=== PATIENT | female | born 1950 | race Caucasian/White ===

== ENCOUNTER 2017-02-14 07:30 | Inpatient (IN) ==
[~2017-02-14 07:30] MED LIST: ACETAMINOPHEN 500 MG TABLET PO ONE; CEFAZOLIN 1 G INJECTION IVP ONE; FAMOTIDINE PB 20 MG/50 ML BAG IV ONE; LIDOCAINE 1% (10mg/ml) 2mL INJ PF SDV ID ONE; LR 1,000 ML IV SCH; METOCLOPRAMIDE 10mg/2ml INJECTION IVP ONE; NOZIN NASAL SWAB NAS ONE; ONDANSETRON 4 MG/2 ML INJECTION IVP ONE
[2017-02-14] MEDS ORDERED: EPINEPHrine 0.25 MG, BUPIVACAINE 0.25% PF 30 ML, MORPHINE SULFATE 15 MG, KETOROLAC INJ ... OPSITE ONE (08:00)
[2017-02-14 09:18] VITALS: BMI 39.2
[2017-02-14] MEDS ORDERED: INSULIN REGULAR, HUMAN 100 UNIT/ML INJECTION SQ ONE (11:08)
[2017-02-14] MEDS ORDERED: TRANEXAMIC ACID 1gm/NS 100ml IRR MIX IR ONE (11:28)
[2017-02-14] MEDS ORDERED: SALINE FLUSH 10ml SYRINGE IVF PRN (11:28)
--- NOTE | 2017-02-14 12:46 | Anesthesia Preoperative Report ---
Anesthesia Preoperative Record - Date and Time Date: 02/14/17 Preoperative Diagnosis: M17.11 Rt TKA osteoarthritis right knee Proposed Procedure: total right knee NPO Since Date: 02/13/17 NPO Since Time: 23:00 Allergies/Adverse Reactions: Allergies Allergy/AdvReac Type Severity Reaction Status Date / Time No Known Allergies Allergy Unknown Verified 02/14/17 09:45 - Vital Signs Vital Signs: Temperature 98.2 F 02/14/17 09:17 Pulse Rate 78 02/14/17 10:07 Respiratory Rate 17 02/14/17 09:17 Blood Pressure 119/67 02/14/17 09:17 Pulse Oximetry 96 02/14/17 09:17 Oxygen Delivery Method Room Air Height and Weight: Height 1.73 m Weight 117 kg Body Mass Index 39.2 - Medications Inpatient Medications: Current Medications Lactated Ringer's (Lactated Ringers) 1,000 mls @ 50 mls/hr IV .Q20H AVIS Last Admin: 02/14/17 10:22 Dose: 50 mls/hr Sodium Chloride (Iv Flush) 10 - 80 ml IVF PRN PRN PRN Reason: Flushing Home Medications: Home Medications Medication Instructions Recorded Confirmed Type Prevacid (Lansoprazole) 15 mg 30 mg PO DAILY cap 01/05/17 02/14/17 History capsule,delayed release aspirin 81 mg tablet,delayed 81 mg PO HS tab 01/05/17 02/13/17 History release bupropion HCl SR 150 mg tablet,12 150 mg PO DAILY 30 Days #56 01/05/17 02/14/17 History hr sustained-release cisapride 10 mg tablet 10 mg PO AC30HS 01/05/17 02/14/17 History exemestane 25 mg tablet 25 mg PO WS tab 01/05/17 02/14/17 History insulin aspart 100 unit/mL See Protocol CONTINUOUS 01/05/17 02/14/17 History subcutaneous solution SUBCUTANEOUS INFUSION DAILY 90 Days #90 magnesium 250 mg tablet 500 mg PO DAILY tab 01/05/17 02/14/17 History multivitamin with minerals tablet 1 tab-cap PO DAILY tab 01/05/17 02/14/17 History olmesartan 20 1 tab PO DAILY 01/05/17 02/14/17 History mg-hydrochlorothiazide 12.5 mg tablet oxybutynin chloride ER 5 mg 5 mg PO DAILY 30 Days #30 01/05/17 02/14/17 History tablet,extended release 24 hr rosuvastatin 10 mg tablet 10 mg PO HS tab 01/05/17 02/14/17 History vitamin B complex tablet 1 tab-cap PO 1200 tab 01/05/17 02/14/17 History Calcium Phosphate Trib/Vit D3 1 each PO 1200 01/26/17 02/14/17 History [Citracal + D3 Gummies] Krill/Todd-3/Dha/Epa/Lipids 1 each PO DAILY 01/26/17 02/13/17 History [Krill Oil 300 mg Softgel] - Medical History Cardiovascular: Reports: Hypertension Neuro/Musculoskeletal: Reports: Depression - Surgical History HEENT Surgeries: Reports: Tonsillectomy Cardiac Surgeries/Treatments: Reports: Cardiac Catheterization GI Surgery/Treatments: Reports: Colonoscopy (polypectomy), EGD Musculoskeletal Surgery/Tx: Reports: Orthopedic Surgery (ORIF left ankle) Reproductive Surgery/Treatment: Reports: Breast Augmentation/Reduction ( bilateral breast reconstruction; debridement left latissimus flap), Section (x2), Mastectomy (bilateral), Other (Exchange boy breast tissue expanders;boy nipple reconst) Comment Only: Lumpectomy (Rt&Lt breast biopsy; rt partial mastectomy) Anesthesia Reactions: None Hx Family Anesthesia Reaction: No - Social History Smoking Status: Former smoker - Pertinent Findings Laboratory: CBC and BMP 02/14/17 09:28 02/14/17 09:28 BMP 02/14/17 09:28 Sodium 142 Potassium 4.8 Chloride 103 Carbon Dioxide 27 BUN 38.0 H Creatinine 1.5 H Glucose 194 H Calcium 10.0 EKG Rhythm: Normal Sinus Rhythm - Physical Exam Respiratory Exam: Present: lungs clear, bilateral breath sounds equal Cardiovascular Exam: Present: regular rate and rhythm, no murmur - Airway Assessment Mallampati Score: II TMD: 3 Fingerbreadths Neck Extension: good - Plan Regional/Trunk Block: Spinal - Discussion Discussion: Discussed risks/options/alternatives of anesthesia and questions answered. Patient consents. Nursing pain assessment noted. Attestation Statement: Prior to the delivery of any anesthetic medication, I examined the patient, developed the plan, obtained the patient's consent and discussed the risk and benefits of the procedure with the patient/guardian.
[2017-02-14] MEDS ORDERED: FentaNYL 100 MCG/2 ML INJECTION ONE (12:51)
[2017-02-14] MEDS ORDERED: MIDAZOLAM 2mg/2ml INJECTION ONE (12:51)
[2017-02-14] MEDS ORDERED: VANCOMYCIN 1,000 MG INJECTION ONE (12:51)
[2017-02-14] MEDS ORDERED: VANCOMYCIN 1,000 MG INJECTION IAR ONE (13:00)
[2017-02-14] MEDS ORDERED: PROPOFOL 500 MG/50 ML VIAL IV ONE (13:07)
[2017-02-14] MEDS ORDERED: LIDOCAINE 2% (100mg/5mL) PF 5ml vl ONE (13:07)
[2017-02-14] MEDS ORDERED: KETAMINE 500 MG/10 ML INJECTION ONE (13:07)
[2017-02-14] MEDS: NS 1,000 ML IV SCH ×2 (13:29→14:09)
[2017-02-14] MEDS ORDERED: EPHEDRINE 50mg/ml INJECTION ONE (13:43)
[2017-02-14] MEDS ORDERED: SALINE FLUSH 10ml SYRINGE ONE (13:43)
[2017-02-14] MEDS ORDERED: ROPIVACAINE 0.5% (5mg/ml) 30ml INJ ONE (14:08)
--- NOTE | 2017-02-14 14:27 | Operative Note ---
- Procedure Date of Admission: 02/14/17 Side: right Preoperative Diagnosis: knee primary DJD Postoperative Diagnosis: Same as preoperative diagnosis. Operation: total knee arthroplasty Surgeon: Roseann Birmingham MD Postal Transportation Clerk: Lavon Chaudhry Complications: None. Regional/Trunk Block: Spinal Peripheral Nerve Block: Saphenous-Right Estimated Blood Loss: See Anesthesia Record. Fluids: Please see Anesthesia Record. Description of Procedure: Mrs. Pulliam and the right knee were identified and marked in the preoperative holding area. She was brought back to the operating suite and placed supine on the operating table. Spinal anesthetic was administered. The operative lower extremity was prepped and draped in a sterile fashion. Timeout was performed. She had no flexion contracture and a correctable varus deformity. An anterior midline incision followed by medial parapatellar arthrotomy was performed. The tourniquet was not used until cementing. Hemostasis was obtained with electrocautery. The patella was resurfaced to a size 29. A distal femoral osteotomy was then performed in 5 of valgus using intramedullary guide. The femur was sized at a 3 and rotation set using the epicondylar axis. Distal femoral cuts were performed with a 4-in-1 cutting block. A proximal tibial cut was then made perpendicular to its long axis using an extramedullary guide. At this point remaining meniscus and osteophytes were removed and joint cocktail was injected throughout soft tissue. Trial components were placed with a 9 mm spacer. This allowed for full extension and flexion and the patella tracked well. The leg was then exsanguinated and the tourniquet inflated to 250 mmHg. The tibia was then stamped at a size 3 at the proper rotation. The bone was then prepared for cementing and Sasha Triathalon components were cemented into place and allowed to cure in extension. The tourniquet was then let down and hemostasis obtained with electrocautery. Betadine solution was used during the curing period for 3 minutes. 1 g of TXA was allowed to sit in the wound for 5 minutes and then suctioned out. 1 g of vancomycin powder was placed into the joint before the capsulotomy was repaired with #1 Vicryl. I then left my vet assistant close the subcutaneous tissue and skin with 2-0 Vicryl and Monocryl. Dermabond was used on the skin. The drapes were then removed and she was taken to recovery room under the care of anesthesia.
--- NOTE | 2017-02-14 14:52 | History & Physical Update ---
- History and Physical Update Date: 02/14/17 Update: I evaluated this patient and found no changes in the history and clinical exam findings. The treatment plan and recommendations are also unchanged from the previous documentation.
--- NOTE | 2017-02-14 15:52 | XRay Report ---
Indication: postoperative image PROCEDURE: XR knee RT 2V: Encounter: Initial Comparison: December 16, 2016 Findings: Postoperative changes of right total knee replacement are seen. There is expected postoperative subcutaneous gas. No evidence of hardware failure or acute fracture. No retained radiopaque surgical instruments or sponges. Overlying material causing artifact. Impression: New right total knee prosthesis without evidence of immediate complication. .
[2017-02-14] MEDS ORDERED: ONDANSETRON 4 MG/2 ML INJECTION IVP PRN (16:09)
[2017-02-14] MEDS ORDERED: INSULIN ASPART 100unit/ml INJECTION SQ PRN (16:09)
[2017-02-14] MEDS ORDERED: NOZIN NASAL SWAB NAS ONE (16:09)
[2017-02-14] MEDS ORDERED: DiphenhydrAMINE 25 MG CAPSULE PO PRN (16:09)
[2017-02-14] MEDS ORDERED: DiphenhydrAMINE 50 MG/ML INJECTION IVP PRN (16:09)
[2017-02-14] MEDS ORDERED: LORazepam 1 MG TABLET PO PRN (16:09)
--- NOTE | 2017-02-14 16:14 | Anesthesia Postoperative Note ---
- Date and Time Date: 02/14/17 Time: 15:43 - Status Patient Participated in Evaluation: Patient Participated in Person Vital Signs: Temperature 96.9 F 02/14/17 15:55 Pulse Rate 66 02/14/17 15:45 Respiratory Rate 12 02/14/17 15:45 Blood Pressure 121/58 02/14/17 15:45 Pulse Oximetry 100 02/14/17 15:45 Oxygen Delivery Method Nasal Cannula Oxygen Flow Rate 2 Respiratory Function: Airway Patent Cardiovascular Function: Regular Pulse EKG Rhythm: Normal Sinus Rhythm Mental Status: Alert and Oriented Pain Intensity: 0 Hydration: IV Infusing Complications During Recover: None Apparent - Follow-Up Instructions Instructions: Per Surgeon
--- NOTE | 2017-02-14 16:16 | Anesthesia Procedure Note ---
Peripheral Nerve Blockade - Procedure Physician: Bird Birmingham MD Date: 02/14/17 Surgical Procedure: right knee arthroplasty Discussion: Discussed risks/options/alternatives of anesthesia and questions answered. Patient consents. Nursing pain assessment noted. Block Start: 15:16 Block Stop: 15:19 Blocked Employed: Adductor Canal Indication: Post-Operative Pain Approach: Right Side Confirmed Position: Supine Patient: Consent, Risks/Benefits Discussed, Post Block Act. Discussed IV Sedation: No Initial Vital Signs: Temperature 98.2 F 02/14/17 09:17 Temperature Source Oral 02/14/17 09:17 Pulse Rate 89 02/14/17 09:17 Respiratory Rate 17 02/14/17 09:17 Blood Pressure 119/67 02/14/17 09:17 Blood Pressure Mean 84 02/14/17 09:17 Blood Pressure Position Sitting 02/14/17 09:17 Pulse Oximetry 96 02/14/17 09:17 Oxygen Delivery Method 02/14/17 09:17 Post Vital Signs: Temperature 96.9 F 02/14/17 15:55 Pulse Rate 66 02/14/17 15:45 Respiratory Rate 12 02/14/17 15:45 Blood Pressure 121/58 02/14/17 15:45 Pulse Oximetry 100 02/14/17 15:45 Oxygen Delivery Method Nasal Cannula Oxygen Flow Rate 2 Initial Pain Pain Score: 0 Post Block Pain Score: 0 Prep: Chlorhexadine/ETOH Ultrasound Used?: Yes - Injectate Ropivacaine (%): 0.5 Ropivacaine (mL): 20 Was Epi 1:200,000 Used?: No Injection: Injection made incrementally with constant monitoring and aspiration every ml
[2017-02-14] MEDS ORDERED: SCOPOLAMINE 1.5 MG PATCH TD SCH (17:00)
[2017-02-14] MEDS ORDERED: WARFARIN - PHARMACY CONSULT MC ONE ×2 (17:00→17:15)
--- NOTE | 2017-02-14 17:12 | Pharmacy Consult ---
Pharmacy Consult-Warfarin - Consult Information Will give warfarin 5mg po tonight. Goal INR is 1.5-2.5. Will continue to monitor and adjust accordingly. Thank you.
[2017-02-14] MEDS ORDERED: WARFARIN 5 MG TABLET PO ONE (17:15)
[2017-02-14] MEDS ORDERED: EXEMESTANE 25 MG TABLET PO SCH (17:30)
[2017-02-14] MEDS: ACETAMINOPHEN 325 MG TABLET PO SCH ×2 (19:23→22:26)
[2017-02-14] MEDS ORDERED: ENOXAPARIN 40 MG/0.4 ML INJECTION SQ SCH (21:00)
[2017-02-14] MEDS ORDERED: ROSUVASTATIN 10 MG TABLET PO SCH (21:00)
[2017-02-14] MEDS ORDERED: SENNOSIDES 8.6 MG TABLET PO SCH (21:00)
[2017-02-14] MEDS: CEFAZOLIN 2 G in NS 100 ML IV SCH (22:25)
[2017-02-14] MEDS: NOZIN NASAL SWAB NAS SCH (22:25)
[2017-02-14] MEDS: DOCUSATE SODIUM 100 MG CAPSULE PO SCH (22:27)
[2017-02-14] MEDS: Oxycodone *IR* 5 MG TABLET PO PRN (23:54)
[2017-02-15] MEDS: NS 1,000 ML IV SCH ×2 (02:24→09:32)
[2017-02-15] MEDS: CEFAZOLIN 2 G in NS 100 ML IV SCH (05:05)
[2017-02-15] MEDS: NOZIN NASAL SWAB NAS SCH ×2 (05:05→13:02)
[2017-02-15] MEDS ORDERED: LANSOPRAZOLE SOLU-TAB 15 MG TABLET PO SCH (06:30)
--- NOTE | 2017-02-15 07:12 | Pharmacy Consult ---
Pharmacy Consult-Warfarin - Laboratory Information 02/15/17 04:21 INR 1.17 Day 2 of Therapy: 66yo F post TKA. Is warfarin naive. Received Warfarin 5mg yesterday. Will give Warfarin 5mg again today. Target INR = 1.5-2.5 Thank you
--- NOTE | 2017-02-15 08:44 | Orthopedic Progress Note ---
Date: Subjective/Severity of Illness: Sana had a R TKA 02/14 She is doing well. Pain is controlled. Nausea has been her biggest struggle and it improved with eating food and using a scopolamine patch. She did not sleep very well. She was mobile to the bathroom a few times with good tolerance. Denies CP, cough or SOA. She has chronic kidney changes but is improved from her baseline with IV hydration. Hgb slightly down at 10.1 but she is tolerating it well. Orthopedic Objective PO Vital signs: Temperature 97.1 F 02/15/17 07:29 Pulse Rate 84 02/15/17 07:29 Respiratory Rate 16 02/15/17 07:29 Blood Pressure 139/68 02/15/17 07:29 Pulse Oximetry 92 02/15/17 07:29 Oxygen Delivery Method Room Air Oxygen Flow Rate 2 Height and Weight: Height 5 ft 8 in Weight 257 lb 15.053 oz Body Mass Index 39.2 - Constitutional General Appearance: Present: alert, cooperative, obese, agitated (from delays in getting her food on time.) - Respiratory Exam Present: non-labored - Cardiovascular Exam Present: pedal pulses intact Capillary Refill: < 2-3 Seconds - Surgical Site Incision: Mepilex dressing intact, no drainage - Integumentary Exam Present: pink, warm, dry - Neurological Exam Present: no deficits - Psychiatric Exam Present: alert - Labs Result Diagrams: 02/15/17 04:21 02/15/17 04:21 Abnormal lab results 02/14/17 02/14/17 02/15/17 Range/Units 09:28 09:28 04:21 RBC 3.50 L (4.00-5.20) M/MM3 Hgb 10.1 L D (12-16) GM/DL Hct 30.9 L D (36-46) % MPV 9.1 L (9.4-12.4) UM3 Immature Gran % (Auto) 0.7 H (0.0-0.5) % Neut % (Auto) 75.3 H (33-66) % Lymph % (Auto) 14.6 L (23-45) % Abs Immat Gran (auto) 0.05 H (0.00-0.03) T/MM3 Chloride (98-107) MEQ/L BUN 38.0 H (7-17) MG/DL Creatinine 1.5 H (0.7-1.2) MG/DL BUN/Creatinine Ratio (6-26) RATIO Glucose 194 H (65-110) MG/DL Calculated Osmolality 287 H (261-280) MOSM/KG 02/15/17 Range/Units 04:21 RBC (4.00-5.20) M/MM3 Hgb (12-16) GM/DL Hct (36-46) % MPV (9.4-12.4) UM3 Immature Gran % (Auto) (0.0-0.5) % Neut % (Auto) (33-66) % Lymph % (Auto) (23-45) % Abs Immat Gran (auto) (0.00-0.03) T/MM3 Chloride 108 H (98-107) MEQ/L BUN 37.0 H (7-17) MG/DL Creatinine 1.3 H D (0.7-1.2) MG/DL BUN/Creatinine Ratio 29 H (6-26) RATIO Glucose (65-110) MG/DL Calculated Osmolality 281 H (261-280) MOSM/KG H & H 02/14/17 02/15/17 Range/Units 09:28 04:21 Hgb 12.4 10.1 L D (12-16) GM/DL Hct 38.6 30.9 L D (36-46) % Coagulation 02/15/17 Range/Units 04:21 INR 1.17 (0.99-1.21) Orthopedic Assessment and Plan (1) Primary osteoarthritis of right knee Status: Acute Assessment and Plan: Lovenox - Coumadin protocol for VTE prophylaxis. SCD's and early mobilization for added DVT coverage. Cont scopolamine patch for nausea. Pt has diabetic gastroparesis which adds to her nausea. Resume home meds for this. Renal function is improved from her admission numbers, but will need to watch pressures and avoid nsaids. Blood sugars are well controlled this AM. Continue close management. PT/OT services to improve independent function. Discharge Planning per Case Management. 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 0/7 LNs involved. pT2 pN0 MX. ER+, [place]+, HER-2/ carol negative. Radiation, [facility] since 07/2010. * Invasive tubulolobular carcinoma (grade 1) diagnosed 02/22/2011. Size 1.2 cm. Metastatic carcinoma was in 08/02 nodes. pT1c pN1 MX * Patient reports BRCA testing was done and was negative. (3) Diabetes Status: Acute Hospital Course Summary Disclaimer: The visit summary below is not to be considered part of the above Progress Note.
[2017-02-15] MEDS ORDERED: OLMESARTAN PO SCH (09:00)
[2017-02-15] MEDS ORDERED: BuPROPion SR 150mg (12HR) TABLET PO SCH (09:00)
[2017-02-15] MEDS ORDERED: OMEGA-3 ACID ESTERS 1 GM CAPSULE PO SCH (09:00)
[2017-02-15] MEDS ORDERED: POLYETHYL GLYCOL 3350 17gm PACKET PO SCH (09:00)
[2017-02-15] MEDS ORDERED: MAGNESIUM OXIDE 400 MG TABLET PO SCH (09:00)
[2017-02-15] MEDS ORDERED: HCTZ PO SCH (09:00)
[2017-02-15] MEDS: DOCUSATE SODIUM 100 MG CAPSULE PO SCH (09:35)
[2017-02-15] MEDS: ACETAMINOPHEN 325 MG TABLET PO SCH ×2 (09:36→13:01)
[2017-02-15] MEDS: Oxycodone *IR* 5 MG TABLET PO PRN (10:26)
[2017-02-15 11:59] VITALS: BP 131/53; PULSE 79; RESP 18; TEMP 98.6; O2SAT 96
[2017-02-15] MEDS ORDERED: VITAMIN B COMPLEX + C TABLET PO SCH (12:00)
[2017-02-15] MEDS ORDERED: WARFARIN 5 MG TABLET PO SCH (12:00)
--- NOTE | 2017-02-15 14:25 | Discharge Summary ---
Orthopedic Discharge Info Date of admission: 02/14/17 08:57 Primary care physician: Dee Castellanos DO Attending Physician: Bird Birmingham MD Consults: 02/14/17 09:18 Consult to Anesthesiology [CONS] Routine Consulting Provider: VALARIE Crisostomo Reason For Exam: Preoperative Assessment 02/14/17 16:09 Case Management Consult [CONS] Routine Reason For Exam: Discharge Planning DME-Walker [CONS] Routine Height: 5 ft 8 in Weight: 257 lb 15.053 oz Comment: change dressing in 2 weeks Pharmacy Consult [CONS] Routine Pharmacy Consult: Coumadin/Warfarin Total Joint Outpatient Therapy [CONS] Routine Comment: change dressing in 2 weeks - Discharge Diagnosis (1) Breast cancer Problem Details: * 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 0/7 LNs involved. pT2 pN0 MX. ER+, [place]+, HER-2/carol negative. Radiation, [facility] since 07/2010. * Invasive tubulolobular carcinoma (grade 1) diagnosed 02/22/2011. Size 1.2 cm. Metastatic carcinoma was in 08/02 nodes. pT1c pN1 MX * Patient reports BRCA testing was done and was negative. Status: Chronic (2) Primary osteoarthritis of right knee Status: Acute (3) Diabetes Status: Acute - Procedures Procedures: Procedures Bilateral breast implant (06/06/11) Latissimus dorsi myocutaneous flap (06/06/11) Transfusion of packed cells (06/06/11) - Laboratory Result Diagrams: 02/15/17 04:21 02/15/17 04:21 Laboratory: Abnormal lab results 02/15/17 02/15/17 Range/Units 04:21 04:21 RBC 3.50 L (4.00-5.20) M/MM3 Hgb 10.1 L D (12-16) GM/DL Hct 30.9 L D (36-46) % Chloride 108 H (98-107) MEQ/L BUN 37.0 H (7-17) MG/DL Creatinine 1.3 H D (0.7-1.2) MG/DL BUN/Creatinine Ratio 29 H (6-26) RATIO Calculated Osmolality 281 H (261-280) MOSM/KG H & H 02/14/17 02/15/17 Range/Units 09:28 04:21 Hgb 12.4 10.1 L D (12-16) GM/DL Hct 38.6 30.9 L D (36-46) % Coagulation 02/15/17 Range/Units 04:21 INR 1.17 (0.99-1.21) Orthopedic Discharge HPI - HPI Comments This patient was admitted for elective surgical tx of end stage degenerative joint disease that failed to respond to conservative treatment. Further details of this is found in the admission H&P. Orthopedic Hospital Course Hospital course: 02/15/17 14:21 After appropriate preoperative clearance and signing of operative consent, the patient was given IV antibiotics, according to orthopedic protocol. The patient was taken to the operating room and underwent elective joint arthroplasty. Following surgery, antibiotics were discontinued less than 24 hours according to joint protocol. Appropriate anticoagulants were initiated and SCDs added for DVT prevention. The dressing was clean, dry, and intact. Pain control was obtained via multimodal approach. Bowel motivation addressed with scheduled and PRN medications. Early mobilization was initiated through PT services. Discharge arrangements made by a collaborative effort between the patient and Case Management. Follow-up is scheduled in 2-3 weeks. Discharge instructions given by orthopedic providers and nursing staff at discharge. Discharge condition was good. Ongoing care required?: No - Postoperative Anemia patient received IVF, labs monitored daily, no intervention required, HGB drop- acceptable Discharge Plan - Med Rec/Dispo Referrals/Follow Up: Bird Birmingham MD [Physician] - 03/08/17 10:00 am [place] Instructions: [facility] [place], [facility] [place] Postop Instructions Additional Instructions: COUNSEL [facility]. GIVE YOURSELF ONE INJECTION EACH DAY FOR 5 DAYS. THE MEDICATION WILL COST $15.76. COME [place] [facility] [place] EVERY MONDAY AND MONDAY FOR 4 WEEKS WHILE TAKING COUMADIN. YOUR FIRST LAB APPOINTMENT WILL BE FEBRUARY 16. [facility] ON 02/17/2017 AT 1:30PM FOR PHYSICAL THERAPY EVAL. PLEASE COMPLETE THE PAPERWORK IN THE [facility] PRIOR TO THE APPOINTMENT. PHONE [phone] Prescriptions: New Acetaminophen [Tylenol] 650 mg PO QID #100 tablet Enoxaparin Sodium [Lovenox] 40 mg SQ Q24H #5 syringe Oxycodone *Ir* [Roxicodone *Ir*] 5 - 15 mg PO Q3H PRN #60 tablet PRN Reason: Breakthrough Pain Warfarin [Coumadin] 2 tab PO NOON #60 tab Continue Calcium Phosphate Trib/Vit D3 [Citracal + D3 Gummies] 1 each PO 1200 Krill/Bussey-3/Dha/Epa/Lipids [Krill Oil 300 mg Softgel] 1 each PO DAILY exemestane 25 mg tablet 25 mg PO WS tab multivitamin with minerals tablet 1 tab-cap PO DAILY tab Prevacid (Lansoprazole) 15 mg capsule,delayed release 30 mg PO DAILY cap olmesartan 20 mg-hydrochlorothiazide 12.5 mg tablet 1 tab PO DAILY rosuvastatin 10 mg tablet 10 mg PO HS tab vitamin B complex tablet 1 tab-cap PO 1200 tab insulin aspart 100 unit/mL subcutaneous solution See Protocol CONTINUOUS SUBCUTANEOUS INFUSION DAILY 90 Days #90 bupropion HCl SR 150 mg tablet,12 hr sustained-release 150 mg PO DAILY 30 Days #56 oxybutynin chloride ER 5 mg tablet,extended release 24 hr 5 mg PO DAILY 30 Days #30 magnesium 250 mg tablet 500 mg PO DAILY tab cisapride 10 mg tablet 10 mg PO AC30HS Discontinued aspirin 81 mg tablet,delayed release 81 mg PO HS tab - Disposition 01 Discharged Home, Self-Care
[2017-02-15] MEDS ORDERED: SENNOSIDES 8.6 MG TABLET PO PRN (14:54)
[2017-02-16] MEDS ORDERED: BuPROPion XL 150mg (24HR) TABLET PO SCH (09:00)
[2017-02-16] MEDS ORDERED: MAGNESIUM OXIDE 400 MG TABLET PO SCH (09:00)
[2017-02-16] MEDS ORDERED: BISACODYL 10 MG SUPPOSITORY RECTALLY SCH (20:00)
[2017-02-17] MEDS ORDERED: SCOPOLAMINE PATCH REMOVAL TD SCH (17:00)
== END 2017-02-15 16:20 | disposition home or self-care (01) | DRG 470 ==
LOC: SRG 08:57
PROVIDERS: ADMIT Orthopaedic Surgery; ATTEND Orthopaedic Surgery